=== PATIENT | female | born 1955 | race Hispanic/Latino ===

== ENCOUNTER 2024-08-03 09:14 | Outpatient (CLI) | payer MEDICARE | END 2024-08-03 09:15 | disposition home or self-care (01) | LOC: CSHMAMMO 09:14 | PROVIDERS: ATTEND Family Medicine | DX: N95.9 Unspecified menopausal and perimenopausal disorder (principal); M85.851 Other specified disorders of bone density and structure, right thigh; M85.852 Other specified disorders of bone density and structure, left thigh | CPT/HCPCS: 77080 ==